=== PATIENT | male | born 1990 | race Caucasian/White ===

== ENCOUNTER 2018-12-15 09:24 | Emergency (ER) | payer OTHER ==
[~2018-12-15] VITALS: Ht 172.7 cm; Wt 101.2 kg
[2018-12-15 09:33] VITALS: BP 128/82
--- NOTE | 2018-12-15 09:38 | NUR ---
PATIENT AMBULATED TO BED 5.
--- NOTE | 2018-12-15 09:40 | NUR ---
C/O LEFT FOREARM REDNESS AND SWELLING X 2 DAYS. PER PATIENT, PROGRESSING SWELLING. STATES HE MAY HAVE INJURED ARM AGAINST CAR DOOR YESTERDAY TO CAUSE THE SWELLING. NO OBVIOUS DEFORMITY. TACHY AT 107. AFEBRILE. [id number]. BED IS DOWN, LOCKED, EBD RAIL X 1, ERMD TO SEE PT. HX--DENIES RX--DENIES
--- NOTE | 2018-12-15 09:48 | NUR ---
DR ANGELO AT BEDSIDE
[2018-12-15] MEDS ORDERED: KETOROLAC 30 MG/ML VIAL IM ONE (10:05)
[2018-12-15 10:42] VITALS: BP 123/81
--- NOTE | 2018-12-15 10:42 | NUR ---
Patient discharged with v/s stable. Written and verbal after care instructions given and explained. Patient alert, oriented and verbalized understanding of instructions. Ambulatory with steady gait. All questions addressed prior to discharge. ID band removed. Patient advised to follow up with PMD. Rx of naprosyn and bactrim given. Patient educated on indication of medication including possible reaction and side effects. Opportunity to ask questions provided and answered.
== END 2018-12-15 10:42 | disposition home or self-care (01) ==
LOC: MED 09:24
DX: L03.114 Cellulitis of left upper limb (principal); F15.10 Other stimulant abuse, uncomplicated
CPT/HCPCS: 73090; 96372; 99284; J1885